=== PATIENT | female | born 1965 | race Caucasian/White ===

== ENCOUNTER 2017-09-01 08:06 | Day surgery (SDC) | payer BC ==
[~2017-09-01 08:06] MED LIST: Lactated Ringers 1,000 ML IV SCH; Midazolam 1 MG/ML 2 ML SDV ONE; Propofol 200 MG/20 ML SDV ONE; Sodium Chloride 0.9% 10 ML Syringe FLUSH PRN; Sodium Chloride 0.9% 2.5 ML Syringe FLUSH PRN; fentaNYL 100 MCG/2 ML SDV ONE
--- NOTE | 2017-09-01 08:29 | PCM.PREANE ---
Preanesthetic Assessment - Anesthesia/Transfusion/Family Hx Anesthesia History: Prior Anesthesia Without Reaction Family History of Anesthesia Reaction: No Transfusion History: Prior Transfusion Without Reaction Intubation History: Unknown - Review of Systems General: No Symptoms Pulmonary: No Symptoms Cardiovascular: No Symptoms Gastrointestinal: Abdominal Pain, Other (change in bowel habits) Neurological: No Symptoms Other: Reports: None - Physical Assessment Height: 1.6 m Weight: 61.689 kg ASA Class: 2 Mental Status: Alert & Oriented x3 Airway Class: Mallampati = 2 Dentition: Reports: Normal Dentition, Warrens(s) (on the back sides) Thyro-Mental Finger Breadths: 3 Mouth Opening Finger Breadths: 3 ROM/Head Extension: Full Lungs: Clear to Auscultation, Normal Respiratory Effort Cardiovascular: Regular Rate, Regular Rhythm - Allergies Allergies/Adverse Reactions: Allergies Allergy/AdvReac Type Severity Reaction Status Date / Time No Known Allergies Allergy Verified 08/26/17 14:51 - Blood Blood Available: No - Anesthesia Plan Pre-Op Medication Ordered: None - Acknowledgements Anesthesia Type Planned: MAC Pt an Appropriate Candidate for the Planned Anesthesia: Yes Alternatives and Risks of Anesthesia Discussed w Pt/Guardian: Yes Pt/Guardian Understands and Agrees with Anesthesia Plan: Yes PreAnesthesia Questionnaire HEENT History: Reports: None Gastrointestinal History: Reports: Helicobacter Pylori, Irritable Bowel Syndrome 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 CT scan and C/A/P were normal) - Past Surgical History Head Surgeries/Procedures: Reports: None HEENT Surgical History: Reports: Tonsillectomy GI Surgical History: Reports: Cholecystectomy, Colon (resection due to involvment with ovarian cancer in .), Colonoscopy Other GI Surgeries/Procedures: colon resection for "tumor around her colon" Female Surgical History: Reports: Hysterectomy, Oophorectomy Other Female Surgeries/Procedures: hysterectomy with oophorectomy due to ovarian cancer Male Surgical History: Reports: Other (See Below) - SUBSTANCE USE Smoking Status *Q: Never Smoker Recreational Drug Use History: No - HOME MEDS Home Medications: Home Meds . [No Known Home Meds] 08/29/17 [History] - CURRENT (IN HOUSE) MEDS Current Meds: Current Medications Lactated Ringer's (Ringers, Lactated) 1,000 mls @ 125 mls/hr IV ASDIRECTED MITCHELL Sodium Chloride (Saline Flush) 10 ml FLUSH ASDIRECTED PRN PRN Reason: Keep Vein Open Sodium Chloride (Saline Flush) 2.5 ml FLUSH ASDIRECTED PRN PRN Reason: Keep Vein Open Discontinued Medications Fentanyl (Sublimaze) Confirm Administered Dose 100 mcg .ROUTE .STK-MED ONE Stop: 09/01/17 07:34 Midazolam HCl (Versed 1 Mg/Ml) Confirm Administered Dose 2 mg .ROUTE .STK-MED ONE Stop: 09/01/17 07:34 Propofol (Diprivan 20 Ml) Confirm Administered Dose 200 mg .ROUTE .STK-MED ONE Stop: 09/01/17 07:34
--- NOTE | 2017-09-01 09:45 | PCM.POSTAN ---
POST ANESTHESIA ASSESSMENT - MENTAL STATUS Mental Status: Alert - RESPIRATORY Respiratory Status: Respiratory Rate WNL, Airway Patent, O2 Saturation Stable - CARDIOVASCULAR CV Status: Pulse Rate WNL, Blood Pressure Stable - GASTROINTESTINAL GI Status: No Symptoms - PAIN Pain Score: 0 - POST OP HYDRATION Hydration Status: Adequate & Stable - OBSERVATIONS Free Text/Narrative:: no anesthesia problems
--- NOTE | 2017-09-01 14:50 | PCM.OPNOTE ---
- General Post-Op/Procedure Note Date of Surgery/Procedure: 09/01/17 Operative Procedure(s): Diagnostic EGD and colonoscopy Findings: Esophagitis, descending colon polyp. Proximal colon/small bowel anastamosis Pre Op Diagnosis: H. pylori infection, LUQ pain Post-Op Diagnosis: Descending colon po0lyp, esophagitis Anesthesia Technique: [facility] [place] Primary Surgeon: Bri Arreguin Condition: Good Free Text/Narrative:: Intake & Output 08/31/17 09/01/17 09/01/17 22:59 06:59 14:59 Intake Total 300 Balance 300
--- NOTE | 2017-09-01 21:29 | OR ---
SURGEON: BRI ARREGUIN MD DATE OF PROCEDURE: 09/01/2017 PREOPERATIVE DIAGNOSES: Left upper quadrant pain, Helicobacter pylori infection. POSTOPERATIVE DIAGNOSES: Descending colon polyp, diverticulosis, grade I internal hemorrhoids and esophagitis. PROCEDURE PERFORMED: Diagnostic EGD and colonoscopy. ENDOSCOPIST: Dr. Bri Arreguin. ANESTHESIA: MAC. EXTENT OF EXAM: To the second portion of duodenum, to the cecum. INSTRUMENT USED: Olympus colonoscope, Olympus endoscope. PREPARATION: Good. LIMITATIONS: None. INDICATION FOR EXAMINATION: The patient is a 52-year-old female with a history of recurrent ovarian cancer, who has had multiple abdominal surgeries and even a colon resection, who presents with abdominal pain. An H. pylori test was performed that was positive. She was given a Prevpac. She states that her symptoms significantly improved with this. The patient is here for diagnostic EGD and colonoscopy. We discussed the procedure, expected perioperative course, and risks including bleeding, infection and/or perforation. The patient verbalized understanding and wishes to proceed. PROCEDURE IN DETAIL: The patient was brought into the endoscopy suite and placed in left lateral decubitus position. A time-out was completed verifying the patient's name, age, date of , allergies, and procedure to be performed. A bite block was placed in the patient's mouth and monitored anesthesia care induced. Continuous oxygen was provided via nasal cannula throughout the procedure. After adequate sedation was achieved, a well lubricated endoscope was placed in the patient's mouth and advanced under direct visualization to the level of the second portion of duodenum. This appeared normal and a photograph was taken. The scope was then fully withdrawn while examining the color, texture, anatomy, and integrity of the mucosa of the upper GI tract. The remainder of the duodenum appeared normal. The scope was brought into the stomach and a photograph was taken of the pylorus as well as the GE junction. These both appeared normal. There was no evidence of active inflammation or ulceration within the gastric mucosa. Biopsies were taken of the gastric, body, antrum, and fundus and sent for H. pylori testing to ensure eradication. The scope was brought into the distal esophagus and photographs was taken of the GE junction. The distal esophagus appeared to be atrophic with some areas of polyps. Biopsies were taken of the distal esophageal mucosa as well as one of these polyps and sent for pathology testing. The remainder of the esophagus appeared normal. The scope was then removed and this portion of procedure was terminated. A digital rectal exam was performed which was normal. A well lubricated colonoscope was then inserted in the rectum and advanced under direct visualization to the level of cecum. The cecum was identified by both visual and anatomic landmarks. There were changes at the level of the cecum that were consistent with a possible prior resection. A photograph was taken of this area. The scope was then fully withdrawn while examining the color, texture, anatomy, and integrity of the mucosa from the cecum to the anal canal. The patient was found to have a sessile polyp within the descending colon. Biopsies of this were taken. It was unclear if this was truly a polyp or just in folded over piece of a colon. The area of concern was completely removed. The patient was also noted to have diverticulosis. The scope was then brought into the rectum and retroflexed to allow visualization of the anal canal opening. She had grade 1 internal hemorrhoids. The scope was then straightened out and removed from the patient. The cecum to anus time was 6 minutes. The patient tolerated the procedure well and was taken to PACU in stable condition. Endoscopic Diagnosis: 1) Esophagitis 2) Descending colon polyp 3) Diverticulosis 4) Grade 1 internal hemorrhoids Recommendations: Follow up in 2 weeks. Will start pantoprazole 40mg once per day. RONAK BENJAMIN /[id number] CASSIE
== END 2017-09-01 10:08 | disposition home or self-care (01) ==
LOC: MW.SDS 08:06
PROVIDERS: ATTEND Surgery
DX: K63.5 Polyp of colon (principal); K62.1 Rectal polyp; K57.30 Diverticulosis of large intestine without perforation or abscess without bleeding; K64.0 First degree hemorrhoids; K21.0 Gastro-esophageal reflux disease with esophagitis; K58.9 Irritable bowel syndrome, unspecified; Z85.43 Personal history of malignant neoplasm of ovary; Z98.890 Other specified postprocedural states; Z90.710 Acquired absence of both cervix and uterus; Z90.49 Acquired absence of other specified parts of digestive tract
CPT/HCPCS: 43239; 45380; 88305; 88312; J2250; J3010; J7120; J2704

== ENCOUNTER 2020-08-22 17:43 | Emergency (ER) | payer OTHER, BC ==
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
== END 2020-08-22 18:54 | disposition home or self-care (01) ==
LOC: MW.ED 17:43
DX: R07.81 Pleurodynia (principal); M25.531 Pain in right wrist; M79.662 Pain in left lower leg; M79.661 Pain in right lower leg; Z88.5 Allergy status to narcotic agent; V43.53XA Car driver injured in collision with pick-up truck in traffic accident, initial encounter
CPT/HCPCS: 99283

== ENCOUNTER 2022-11-23 08:04 | Day surgery (SDC) | payer BC ==
[~2022-11-23 08:04] MED LIST changes: -Midazolam 1 MG/ML 2 ML SDV ONE; -Propofol 200 MG/20 ML SDV ONE; +Sodium Chloride 0.9% 20 ML SDV IV PRN; -fentaNYL 100 MCG/2 ML SDV ONE
[2022-11-23] MEDS ORDERED: Propofol 200 MG/20 ML SDV ONE ×2 (08:10→10:20)
[2022-11-23] MEDS ORDERED: fentaNYL 100 MCG/2 ML SDV ONE (08:10)
[2022-11-23] MEDS ORDERED: Lidocaine 2% 5 ML SDV ONE (08:10)
[2022-11-23] MEDS ORDERED: Famotidine 20 MG/2 ML SDV ONE (09:38)
== END 2022-11-23 11:21 | disposition home or self-care (01) ==
LOC: MW.SDS 08:04
PROVIDERS: ATTEND Surgery
DX: D12.2 Benign neoplasm of ascending colon (principal); K29.50 Unspecified chronic gastritis without bleeding; K21.9 Gastro-esophageal reflux disease without esophagitis; K57.30 Diverticulosis of large intestine without perforation or abscess without bleeding; K58.9 Irritable bowel syndrome, unspecified; K31.7 Polyp of stomach and duodenum; Z88.6 Allergy status to analgesic agent; Z98.890 Other specified postprocedural states; Z79.899 Other long term (current) drug therapy
CPT/HCPCS: 43239; 45380; 45381; J2704; J3010; J3490; J7120; 00813